=== PATIENT | male | born 1955 | race Caucasian/White ===

== ENCOUNTER 2020-11-16 01:14 | Emergency (ER) | payer MEDICARE, OTHER ==
[~2020-11-16] VITALS: Ht 172.7 cm; Wt 100.0 kg
[2020-11-16] MEDS ORDERED: DOXYCYCLINE 10100 MG PO (01:44)
[2020-11-16] MEDS ORDERED: PREDNISONE20 MG PO (01:44)
[2020-11-16 02:28] VITALS: BP 143/88; PULSE 65; TEMP 97.9
== END 2020-11-16 02:28 | disposition home or self-care (01) ==
LOC: COL.ER 01:14
DX: L03.114 Cellulitis of left upper limb (principal)
CPT/HCPCS: J7512